=== PATIENT | female | born 1960 | race Caucasian/White ===

== ENCOUNTER 2017-04-07 18:25 | Emergency (ER) | payer OTHER ==
[~2017-04-07] VITALS: Ht 160 cm; Wt 79.7 kg
[~2017-04-07 18:25] MED LIST: ATEN50TA8 PO; FEXO1TAB46 PO
[2017-04-07 18:50] VITALS: TEMP 36.8; Ht 160 cm; Wt 79.7 kg
[2017-04-07] MEDS ORDERED: ATOR10TA82 PO (19:29)
[2017-04-07 19:34] LABS: BASO % 0.3 %; BASO ABS # 0.03 K/uL (0-0.2); EOS % 1.5 %; EOS ABS # 0.13 K/uL (0-0.5); HEMATOCRIT 42.9 % (37-47); HEMOGLOBIN 14.9 g/dL (12.0-16.0); IG# 0.01 K/uL (0.00-0.02); LYMPH % 21.1 %; LYMPH ABS # 1.84 K/uL (1.2-3.4); MEAN CORPUSCULAR HEMOGLOBIN 30.9 pg (25-34); MEAN CORPUSCULAR HGB CONC 34.7 g/dl (32-36); MEAN PLATELET VOLUME 9.7 fL (7.4-10.4); MONO % 4.8 %; MONO ABS # 0.42 K/uL (0.11-0.59); NEUT % 72.2 %; NEUT ABS # 6.31 K/uL (1.4-6.5); PLATELET COUNT 235 K/uL (130-400); RED CELL DISTRIBUTION WIDTH CV 13.1 % (11.5-14.5); RED CELL DISTRIBUTION WIDTH SD 42.6 fL (36.4-46.3); WHITE BLOOD COUNT 8.74 K/uL (4.8-10.8)
[2017-04-07 19:49] LABS: CALCIUM 9.4 mg/dl (8.5-10.1); CREATININE 0.93 mg/dl (0.60-1.20); POTASSIUM 3.6 mmol/L (3.5-5.1)
[2017-04-07 20:37] VITALS: BP 136/90; PULSE 70; O2SAT 96
--- NOTE | 2017-04-07 23:56 | EMERGENCY ROOM VISIT NOTE ---
History Report prepared by Papa: Travon Mcneil Under the Supervision of: Dr. Gary Live M.D. First contact with patient: 18:52 Chief Complaint: HYPERTENSION Stated Complaint: HIGH BLOOD PRESSURE History of Present Illness The patient is a 56 year old female who presents to the Emergency Room with complaints of persistent hypertension first noticed around 1630 today. She states that her blood pressure was around 164/98 at 1630, and then it was 173/ 94 at 1730 after laying down for a while. The patient reports that today she was working, and she got a pressure in her head around noon, though she attributed it to allergies, and then she took her allergy medications at 1530, and then she took her blood pressure later. She states that she was not stressed today at work but she does state she is generally stressed. The patient has a history of hypertension, and she takes atenolol. She is denying any shortness of breath, chest pain, abdominal pain, fever, nausea, and problems of urinating. Source of History: patient Onset: 1630 Position: other (global) Quality: other (hypertension) Timing: other (persistent) Associated Symptoms: No fevers, No chest pain, No SOB, No nausea, No abdominal pain Note: Associated symptoms: Head pressure. Review of Systems See HPI for pertinent positives & negatives. A total of 10 systems reviewed and were otherwise negative. Past Medical & Surgical Medical Problems: (1) HTN (hypertension) Family History Diabetes mellitus Hypertension Social History Smoking Status: Current Every Day Smoker Marital Status: Housing Status: lives with family Occupation Status: employed Current/Historical Medications Scheduled Atenolol (Tenormin), 50 MG PO DAILY Atorvastatin (Lipitor), 10 MG PO QPM Fexofenadine Hcl (Lisest), 180 MG PO DAILY Allergies Coded Allergies: No Known Allergies (Unverified , 04/07/17) Physical Exam Vital Signs Date Time Temp Pulse Resp B/P (MAP) Pulse Ox O2 Delivery O2 Flow Rate FiO2 04/07/17 20:37 70 18 136/90 96 Room Air 04/07/17 19:32 65 04/07/17 18:50 36.8 86 20 167/101 97 Room Air Physical Exam Constitutional: Vital signs reviewed. Eyes: Pupils are equal round reactive to light. Conjunctiva are noninjected. ENT: Pharynx is clear without erythema or exudate. Mucous membranes are moist. Neck supple without meningeal signs. Respiratory: Clear to auscultation bilaterally. Breath sounds are equal bilaterally. Cardiovascular: Regular rate and rhythm. No rubs or gallops. GI: Soft, nondistended and nontender. Bowel sounds are present. Musculoskeletal: No peripheral edema. No lower extremity tenderness. Integumentary: No cyanosis. Neurological: The patient is awake and alert. Cranial nerves II-XII are intact. Motor is 5 out of 5 all extremities. Sensation is intact to light touch all extremities. Normal speech. No pronator drift. Psychiatric: Anxious Medical Decision & Procedures Laboratory Results 04/07/17 19:21 Red Blood Count 4.82, Mean Corpuscular Volume 89.0, Mean Corpuscular Hemoglobin 30.9, Mean Corpuscular Hemoglobin Concent 34.7, Mean Platelet Volume 9.7, Neutrophils (%) (Auto) 72.2, Lymphocytes (%) (Auto) 21.1, Monocytes (%) (Auto) 4.8, Eosinophils (%) (Auto) 1.5, Basophils (%) (Auto) 0.3, Neutrophils # (Auto) 6.31, Lymphocytes # (Auto) 1.84, Monocytes # (Auto) 0.42, Eosinophils # (Auto) 0.13, Basophils # (Auto) 0.03 04/07/17 19:21 Test 04/07/17 19:21 White Blood Count 8.74 K/uL (4.8-10.8) Red Blood Count 4.82 M/uL (4.2-5.4) Hemoglobin 14.9 g/dL (12.0-16.0) Hematocrit 42.9 % (37-47) Mean Corpuscular Volume 89.0 fL (80-100) Mean Corpuscular Hemoglobin 30.9 pg (25-34) Mean Corpuscular Hemoglobin Concent 34.7 g/dl (32-36) Platelet Count 235 K/uL (130-400) Mean Platelet Volume 9.7 fL (7.4-10.4) Neutrophils (%) (Auto) 72.2 % Lymphocytes (%) (Auto) 21.1 % Monocytes (%) (Auto) 4.8 % Eosinophils (%) (Auto) 1.5 % Basophils (%) (Auto) 0.3 % Neutrophils # (Auto) 6.31 K/uL (1.4-6.5) Lymphocytes # (Auto) 1.84 K/uL (1.2-3.4) Monocytes # (Auto) 0.42 K/uL (0.11-0.59) Eosinophils # (Auto) 0.13 K/uL (0-0.5) Basophils # (Auto) 0.03 K/uL (0-0.2) RDW Standard Deviation 42.6 fL (36.4-46.3) RDW Coefficient of Variation 13.1 % (11.5-14.5) Immature Granulocyte % (Auto) 0.1 % Immature Granulocyte # (Auto) 0.01 K/uL (0.00-0.02) Anion Gap 7.0 mmol/L (3-11) Est Creatinine Clear Calc Drug Dose 67.5 ml/min Estimated GFR () 79.6 Estimated GFR (Non- 68.7 BUN/Creatinine Ratio 14.7 (10-20) Calcium Level 9.4 mg/dl (8.5-10.1) Laboratory results as reviewed by me. ECG Per My Interpretation Indication: other (hypertension) Rate (beats per minute): 72 Rhythm: normal sinus Findings: RBBB (incomplete), other (No ST elevation) Comparison ECG Date: November 2011 Change: no significant change ED Course 1851: The patient was evaluated in room C9. A complete history and physical exam was performed. 2027: I reevaluated the patient, and I discussed the test results with her. She will be discharged home. Medical Decision This is a 56-year-old female who presents with high blood pressure and headache. Differential diagnoses considered include medication noncompliance, stress reaction, essential hypertension, anxiety. I did perform a limited focused review of portions of the patient's old chart on the electronic medical record. The patient has had no recent pertinent visits to this hospital. I did evaluate the patient as noted above. The patient developed a mild headache while at work today. She took her blood pressure and was elevated. She took it again later and it was still elevated so she became concerned and came to the emergency department. She otherwise is asymptomatic. She states that she still has a mild headache but states that she feels like it will just get better if she takes a little Tylenol. She is neurologically intact. She has no signs of endorgan damage. IV access was established. The patient was placed on a continuous package liner. I did order and personally review the patient's 12-lead EKG as described above. I did order and review the patient's blood work as noted in the electronic medical record. Her blood work is unremarkable. I did discuss the test results with the patient. I did reassure her regarding what pressure control. I did recommend she continue to monitor blood pressure and to follow-up closely with her doctor to see if she needs any adjustments of her medications. She was advised to return should she have any worsening symptoms or develop any new symptoms. She was discharged in good condition. Medication Reconcilliation Current Medication List: was personally reviewed by me Blood Pressure Screening Patient's blood pressure: Elevated blood pressure Blood pressure disposition: Referred to PCP Impression Primary Impression: Hypertension Additional Impression: Head ache Scribe Attestation The scribe's documentation has been prepared under my direct and personally reviewed by me in its entirety. I confirm that the note above accurately reflects all work, treatment, procedures, and medical decision making performed by me. Departure Information Dispostion Home / Self-Care Referrals Shannon Loyd M.D. (PCP) Forms HOME CARE DOCUMENTATION FORM, IMPORTANT VISIT INFORMATION, WORK / SCHOOL INSTRUCTIONS Patient Instructions Headache Pain, Hypertension Me, My [facility] Additional Instructions You have been examined and treated today on an emergency basis only. This is not a substitute for, or an effort to provide, complete comprehensive medical care. It is impossible to recognize and treat all injuries or illnesses in a single emergency department visit. It is therefore important that you follow up closely with your physician. Call as soon as possible for an appointment. Return for worsening symptoms or if you develop fever, vomiting, chest pain, shortness of breath, numbness or weakness on one side to your body or any other concerning symptoms. Problem Qualifiers Primary Impression: Hypertension Hypertension type: unspecified Qualified Codes: I10 - Essential (primary) hypertension Additional Impression: Head ache Headache type: unspecified Headache chronicity pattern: acute headache Intractability: not intractable Qualified Codes: R51 - Headache
== END 2017-04-07 20:43 | disposition home or self-care (01) ==
LOC: C.EDB 18:26 → C.EDC 20:43
DX: I10 Essential (primary) hypertension (principal); R51 Headache; F17.200 Nicotine dependence, unspecified, uncomplicated; Z83.3 Family history of diabetes mellitus; Z82.49 Family history of ischemic heart disease and other diseases of the circulatory system